=== PATIENT | male | born 1985 | race Caucasian/White ===

== ENCOUNTER 2018-09-20 17:52 | Emergency (ER) | payer OTHER, SELFPAY ==
[2018-09-20 18:01] VITALS: BP 173/100; PULSE 83; RESP 16; TEMP 37.7; O2SAT 99
--- NOTE | 2018-09-20 20:00 | DI.RAD.S_ITS ---
PROCEDURE: XR CHEST 1V INDICATIONS: chest pain TECHNIQUE: One view of the chest was acquired. COMPARISON: None. FINDINGS: Surgical changes and devices: None. Lungs and pleura: Lungs are clear. No pleural effusions or pneumothorax. Mediastinum: Mediastinal contours appear normal. Heart size is normal. Bones and chest wall: No suspicious bony lesions. Overlying soft tissues appear unremarkable. IMPRESSION: No acute cardiopulmonary disease process. Dictated by: Carolina Navarro MD, PhD on 09/20/2018 at 20:14 Approved by: Carolina Navarro MD, PhD on 09/20/2018 at 20:14
[2018-09-20 20:20] VITALS: BP 148/76; PULSE 68; RESP 15; O2SAT 95
[2018-09-20 20:24] LABS: Add Manual Diff / Slide Review NO; Basophils Absolute Auto 100 /uL (0-100); Basophils Percent Auto 1.2 % (0-2); Eosinophils Absolute Auto 100 /uL (0-450); Eosinophils Percent Auto 0.9 % (2-4); Hematocrit 46.7 % (41-53); Hemoglobin 15.7 g/dL (13.5-17.5); Lymphocytes Absolute Auto 3200 /uL (1100-4500); Mean Corpuscular HGB Conc 33.7 % (30-36); Mean Corpuscular Hemoglobin 27.2 PG (26-34); Mean Corpuscular Volume 80.7 fL (80-100); Monocytes Absolute Auto 1200 /uL (0-900); Monocytes Percent Auto 9.6 % (3-14); Neutrophils Absolute Auto 7400 /uL (1500-7000); Neutrophils Percent Auto 61.3 % (50-75); Platelet Count 337 X10^3/uL (150-400); Red Blood Cell Count 5.78 X10^6/uL (4.5-5.9); Red Cell Distribution Width 12.6 % (11.6-14.8)
--- NOTE | 2018-09-20 20:28 | ED.CHESTPAIN ---
HPI - Chest Pain <CODIE Robins - Last Filed: 09/20/18 22:09> General Chief Complaint: Chest Pain Stated Complaint: Chest pain loopy headache Time Seen by Provider: 09/20/18 20:08 Source: patient Mode of arrival: ambulatory Limitations: no limitations History of Present Illness HPI narrative: 33-year-old male with history of hypertension and is a nonsmoker here for complaint of having dizziness, feeling off, anxiety and occasional chest pain on and off over the past several days. He states that he has had new medications prescribed for seasonal allergies that he is taking along with a new blood pressure medicine he is concerned that these medications may be causing his symptoms. He states that he has been anxious that these medications may be causing his symptoms. He states that his anxious since has caused him to lose some sleep over the past couple of nights. He denies any chest pain at this time frame. He denies any stressors or relievers of his symptoms. He denies any instigating is of having chest pain. He denies having any fevers. He denies having any shortness of breath. He is ambulatory into the emergency room. No nausea or vomiting. Related Data Allergies Allergy/AdvReac Type Severity Reaction Status Date / Time No Known Drug Allergies Allergy Verified 09/20/18 18:07 Review of Systems <CODIE Robins - Last Filed: 09/20/18 22:09> Constitutional Denies chills, Denies fever(s), Denies lethargy and Denies weakness ENT Ears, Nose, Mouth, and Throat: Reports dizziness Cardiovascular Reports chest pain, Denies dyspnea and Denies dyspnea on exertion Respiratory Denies cough, Denies dyspnea, Denies dyspnea on exertion and Denies wheezing Gastrointestinal Gastrointestinal: Denies abdominal pain, Denies change in bowel habits, Denies diarrhea, Denies nausea and Denies vomiting Genitourinary Denies hematuria, Denies flank pain, Denies urinary incontinence and Denies urinary urgency Musculoskeletal Denies back pain, Denies muscle weakness, Denies numbness and Denies tingling Integumentary/Breasts Denies pruritus, Denies erythema, Denies rash and Denies wounds Neurologic Denies confusion, Reports dizziness, Denies numbness, Denies tingling and Denies weakness Psychiatric Denies anxiety, Denies confusion, Denies depression, Denies homicidal ideation and Denies suicidal ideation Allergic/Immunologic Denies wheezing PFSH <CODIE Robins - Last Filed: 09/20/18 22:09> Social History Smoking Status: Never smoker Social History Smoking Status: Never smoker Exam <CODIE Robins - Last Filed: 09/20/18 22:09> Initial Vital Signs Initial Vital Signs: Vital Signs Temperature 99.9 F H 09/20/18 18:01 Pulse Rate 83 09/20/18 18:01 Respiratory Rate 16 09/20/18 18:01 Blood Pressure 173/100 H 09/20/18 18:01 Pulse Oximetry 99 09/20/18 18:01 Const General: cooperative and well developed Nutritional Appearance: well nourished Orientation: alert, awake, oriented x3 and not confused HENMT Ears: external ears normal and TM's normal bilaterally Mouth: oral mucosae normal and moist mucous membranes Throat: posterior oropharynx normal Eyes General: appearance normal, both eyes and all related structures Conjunctivae: conjunctivae normal Sclera: sclerae normal Pupils: PERRL EOM: EOM intact bilaterally Resp Effort & Inspection: normal respiratory effort, able to speak in complete sentences, no respiratory distress and no use of accessory muscles Auscultation: clear to auscultation bilaterally, no rales, no rhonchi and no wheezes Cardio Rate: regular rate Rhythm: regular rhythm Heart Sounds: no click, no gallops, no murmurs and no rubs Pulses: normal peripheral pulses GI Inspection: non-distended Palpation: soft, no hepatosplenomegaly, No guarding, No pulsatile mass and No tender Auscultation: normal bowel sounds Skin General: no rashes or lesions noted, No jaundice and No petechiae Neuro General: alert, oriented x3, gait normal and no focal motor deficits Speech: speech normal <Navi Conde DO - Last Filed: 09/21/18 02:53> Initial Vital Signs Initial Vital Signs: Vital Signs Temperature 99.9 F H 09/20/18 18:01 Pulse Rate 83 09/20/18 18:01 Respiratory Rate 16 09/20/18 18:01 Blood Pressure 173/100 H 09/20/18 18:01 Pulse Oximetry 99 09/20/18 18:01 Course <CODIE Robins - Last Filed: 09/20/18 22:09> Orders Ordered: ED Orders 09/20/18 18:10 EKG-12 Lead Routine 09/20/18 20:00 XR chest 1V Stat 09/20/18 20:20 Complete Blood Count AUTO DIFF Stat Comprehensive Metabolic Panel Stat Lipase Stat Troponin & CK Cardiac Panel Stat 09/20/18 20:41 CT head/brain wo con Stat Vital Signs - 8 hr 09/20/18 20:20 09/20/18 20:30 09/20/18 21:00 Pulse Rate 68 83 70 Respiratory Rate 15 18 18 Blood Pressure Blood Pressure [Right Arm] 148/76 H 156/83 H 126/64 Pulse Oximetry 95 96 94 09/20/18 22:00 09/20/18 22:29 Pulse Rate 65 64 Respiratory Rate 20 18 Blood Pressure 128/58 L Blood Pressure [Right Arm] 128/58 L Pulse Oximetry 96 96 <Navi Conde DO - Last Filed: 09/21/18 02:53> Orders Ordered: ED Orders 09/20/18 18:10 EKG-12 Lead Routine 09/20/18 20:00 XR chest 1V Stat 09/20/18 20:20 Complete Blood Count AUTO DIFF Stat Comprehensive Metabolic Panel Stat Lipase Stat Troponin & CK Cardiac Panel Stat 09/20/18 20:41 CT head/brain wo con Stat Vital Signs - 8 hr 09/20/18 20:20 09/20/18 20:30 09/20/18 21:00 Pulse Rate 68 83 70 Respiratory Rate 15 18 18 Blood Pressure Blood Pressure [Right Arm] 148/76 H 156/83 H 126/64 Pulse Oximetry 95 96 94 09/20/18 22:00 09/20/18 22:29 Pulse Rate 65 64 Respiratory Rate 20 18 Blood Pressure 128/58 L Blood Pressure [Right Arm] 128/58 L Pulse Oximetry 96 96 MDM - Chest Pain <CODIE Robins - Last Filed: 09/20/18 22:09> Lab Data Result diagrams: 09/20/18 20:20 09/20/18 20:20 Lab Results 09/20/18 09/20/18 Range/Units 20:20 20:20 WBC 12.0 H (4.5-11.0) X10^3/uL RBC 5.78 (4.5-5.9) X10^6/uL Hgb 15.7 (13.5-17.5) g/dL Hct 46.7 (41-53) % MCV 80.7 (80-100) fL MCH 27.2 (26-34) PG MCHC 33.7 (30-36) % RDW 12.6 (11.6-14.8) % Plt Count 337 (150-400) X10^3/uL Neut % (Auto) 61.3 (50-75) % Lymph % (Auto) 27.0 (25-40) % Wells % (Auto) 9.6 (3-14) % Eos % (Auto) 0.9 L (2-4) % Baso % (Auto) 1.2 (0-2) % Neut # (Auto) 7400 H (7278-6275) /uL Lymph # (Auto) 3200 (0036-9575) /uL Wells # (Auto) 1200 H (0-900) /uL Eos # (Auto) 100 (0-450) /uL Baso # (Auto) 100 (0-100) /uL Sodium 140 (137-145) mmol/L Potassium 4.2 (3.4-5.1) mmol/L Chloride 102 (98-107) mmol/L Carbon Dioxide 29 (22-32) mmol/L BUN 14 (9-20) mg/dL Creatinine 0.90 (0.66-1.25) mg/dL Estimated GFR > 60.0 (>60) mL/min BUN/Creatinine Ratio 15.6 (6-22) Glucose 87 (70-100) mg/dL Calcium 9.5 (8.4-10.2) mg/dL Total Bilirubin 0.6 (0.2-1.3) mg/dL AST 45 (17-59) IU/L ALT 114 H (21-72) IU/L Alkaline Phosphatase 67 (38-126) U/L Total Creatine Kinase 298 H (55-170) U/L CK-MB (CK-2) 0.68 (<2.37) ng/mL CK-MB (CK-2) Rel Index 0.2 L (1.5-5.0) % Troponin I < 0.012 (0.01-0.034) ng/mL Total Protein 8.2 (6.3-8.2) g/dL Albumin 4.8 (3.5-5.0) g/dL Globulin 3.4 (1.7-4.1) g/dL Albumin/Globulin Ratio 1.4 (1.0-2.8) Lipase 82 (23-300) U/L Imaging Data CT scan - head: Radiologist's impression: [address] [address] [address] Scan Report Signed Patient: Jamie Han [facility]#: [id number] : 1985Acct:[id number] Age/Sex: 33 / MDate of Service: 09/20/18 Loc: ED Accession Number: [id number] Procedure: CT head/brain wo con Ordering Provider: Gabino Velasquez PROCEDURE: CT HEAD/BRAIN WO CON INDICATIONS: Headache dizziness feeling stoned TECHNIQUE: Noncontrast 4.5 mm thick angled axial sections acquired from the foramen magnum to the vertex, with coronal and sagittal reformats. For radiation dose reduction, the following was used: automated exposure control, adjustment of mA and/or kV according to patient size. COMPARISON: None. FINDINGS: Image quality: Excellent. CSF spaces: Basal cisterns are patent. No extra-axial fluid collections. Ventricles are normal in size and shape. Brain: No midline shift. No intracranial masses or hemorrhage. Wood-white matter interface is normal. Skull and face: Calvarium and visualized facial bones are intact, without suspicious lesions. Sinuses: Visualized sinuses and mastoids are clear. IMPRESSION: No acute intracranial disease process. Dictated by: Carolina Navarro MD, PhD on 09/20/2018 at 21:07 Approved by: Carolina Navarro MD, PhD on 09/20/2018 at 21:09 Chest x-ray: Radiologist's impression: [address] [address] XRay Report Signed Patient: Jamie Han [facility]#: [id number] : 1985Acct:[id number] Age/Sex: 33 / MDate of Service: 09/20/18 Loc: ED Accession Number: [id number] Procedure: XR chest 1V Ordering Provider: Navi Conde D.O. PROCEDURE: XR CHEST 1V INDICATIONS: chest pain TECHNIQUE: One view of the chest was acquired. COMPARISON: None. FINDINGS: Surgical changes and devices: None. Lungs and pleura: Lungs are clear. No pleural effusions or pneumothorax. Mediastinum: Mediastinal contours appear normal. Heart size is normal. Bones and chest wall: No suspicious bony lesions. Overlying soft tissues appear unremarkable. IMPRESSION: No acute cardiopulmonary disease process. Dictated by: Carolina Navarro MD, PhD on 09/20/2018 at 20:14 Approved by: Carolina Navarro MD, PhD on 09/20/2018 at 20:14 ECG Data Interpretation: EKG shows normal sinus rhythm with no ST elevation or depression. No ectopy. Ventricular rate of 72. Pr interval 194. QRS duration 121. QTC 387. MDM Narrative Medical decision making narrative: chest x-ray was obtained was negative for any acute findings. CT scan of the head was obtained and was also negative for any acute findings. EKG shows sinus rhythm with no ST elevation or depression. No ectopy cardiac enzymes were obtained and were negative. CBC and Chem panel were obtained and were also unremarkable. No emergent causes of his symptoms are found. Differential between viral illness or changes in his medications causing his symptoms including his blood pressure medication. Other differential is anxiety causing his symptoms. Patient's vital signs were stable in the emergency room will have him follow up with his primary care provider in the next few days for re-evaluation. For any worsening symptoms return to the emergency room. <Navi Conde DO - Last Filed: 09/21/18 02:53> Lab Data Lab Results 09/20/18 09/20/18 Range/Units 20:20 20:20 WBC 12.0 H (4.5-11.0) X10^3/uL RBC 5.78 (4.5-5.9) X10^6/uL Hgb 15.7 (13.5-17.5) g/dL Hct 46.7 (41-53) % MCV 80.7 (80-100) fL MCH 27.2 (26-34) PG MCHC 33.7 (30-36) % RDW 12.6 (11.6-14.8) % Plt Count 337 (150-400) X10^3/uL Neut % (Auto) 61.3 (50-75) % Lymph % (Auto) 27.0 (25-40) % Wells % (Auto) 9.6 (3-14) % Eos % (Auto) 0.9 L (2-4) % Baso % (Auto) 1.2 (0-2) % Neut # (Auto) 7400 H (3255-2330) /uL Lymph # (Auto) 3200 (3289-6600) /uL Wells # (Auto) 1200 H (0-900) /uL Eos # (Auto) 100 (0-450) /uL Baso # (Auto) 100 (0-100) /uL Sodium 140 (137-145) mmol/L Potassium 4.2 (3.4-5.1) mmol/L Chloride 102 (98-107) mmol/L Carbon Dioxide 29 (22-32) mmol/L BUN 14 (9-20) mg/dL Creatinine 0.90 (0.66-1.25) mg/dL Estimated GFR > 60.0 (>60) mL/min BUN/Creatinine Ratio 15.6 (6-22) Glucose 87 (70-100) mg/dL Calcium 9.5 (8.4-10.2) mg/dL Total Bilirubin 0.6 (0.2-1.3) mg/dL AST 45 (17-59) IU/L ALT 114 H (21-72) IU/L Alkaline Phosphatase 67 (38-126) U/L Total Creatine Kinase 298 H (55-170) U/L CK-MB (CK-2) 0.68 (<2.37) ng/mL CK-MB (CK-2) Rel Index 0.2 L (1.5-5.0) % Troponin I < 0.012 (0.01-0.034) ng/mL Total Protein 8.2 (6.3-8.2) g/dL Albumin 4.8 (3.5-5.0) g/dL Globulin 3.4 (1.7-4.1) g/dL Albumin/Globulin Ratio 1.4 (1.0-2.8) Lipase 82 (23-300) U/L Discharge Plan Departure Patient Disposition: Home Clinical Impression: Anxiousness Discharge Date/Time: 09/20/18 22:29 Interventions: ED Discharge Assessment Last Done: 09/20/18 22:29 Instructions: DI for Anxiety -- Adult Activity Restrictions/Additional Instructions: laboratory results and imaging today were unremarkable. Signs and symptoms present as symptoms secondary to medication changes or anxiety. follow-up with her primary care provider next few days for re-evaluation. For any worsening symptoms return to the emergency room. Try relaxation techniques to help out if feeling anxious. Such as deep breathing exercises. Referrals: [facility] [Provider Group] <Navi Conde DO - Last Filed: 09/21/18 02:53> Cosign ED Attending Patel Attestation: I was immediately available in the department for consultation. Documentation has been reviewed. I agree with assessment and plan.
[2018-09-20 20:30] VITALS: BP 156/83; PULSE 83; RESP 18; O2SAT 96
--- NOTE | 2018-09-20 20:41 | DI.CT.S_ITS ---
PROCEDURE: CT HEAD/BRAIN WO CON INDICATIONS: Headache dizziness feeling stoned TECHNIQUE: Noncontrast 4.5 mm thick angled axial sections acquired from the foramen magnum to the vertex, with coronal and sagittal reformats. For radiation dose reduction, the following was used: automated exposure control, adjustment of mA and/or kV according to patient size. COMPARISON: None. FINDINGS: Image quality: Excellent. CSF spaces: Basal cisterns are patent. No extra-axial fluid collections. Ventricles are normal in size and shape. Brain: No midline shift. No intracranial masses or hemorrhage. Wood-white matter interface is normal. Skull and face: Calvarium and visualized facial bones are intact, without suspicious lesions. Sinuses: Visualized sinuses and mastoids are clear. IMPRESSION: No acute intracranial disease process. Dictated by: Carolina Navarro MD, PhD on 09/20/2018 at 21:07 Approved by: Carolina Navarro MD, PhD on 09/20/2018 at 21:09
[2018-09-20 20:45] LABS: Alanine Aminotransferase 114 IU/L (21-72); Albumin 4.8 g/dL (3.5-5.0); Albumin Globulin Ratio 1.4 (1.0-2.8); Alkaline Phosphatase 67 U/L (38-126); Aspartate Aminotransferase 45 IU/L (17-59); BUN Creatinine Ratio 15.6 (6-22); Bilirubin Total 0.6 mg/dL (0.2-1.3); Blood Urea Nitrogen 14 mg/dL (9-20); Calcium 9.5 mg/dL (8.4-10.2); Carbon Dioxide 29 mmol/L (22-32); Chloride 102 mmol/L (98-107); Creatine Kinase 298 U/L (55-170); Estimated Glomerular Filt Rate > 60.0 mL/min (>60); Globulin 3.4 g/dL (1.7-4.1); Glucose 87 mg/dL (70-100); HEMOLYSIS < 15 (0-50); Lipase 82 U/L (23-300); Potassium 4.2 mmol/L (3.4-5.1); Sodium 140 mmol/L (137-145); Total Protein 8.2 g/dL (6.3-8.2)
[2018-09-20 20:56] LABS: Troponin I < 0.012 ng/mL (0.01-0.034)
[2018-09-20 21:00] VITALS: BP 126/64; PULSE 70; RESP 18; O2SAT 94
[2018-09-20 21:00] LABS: CKMB % Relative Index 0.2 % (1.5-5.0); Creatine Kinase MB 0.68 ng/mL (<2.37)
[2018-09-20 22:00] VITALS: BP 128/58; PULSE 65; RESP 20; O2SAT 96
--- NOTE | 2018-09-20 22:05 | ED_ITS ---
HPI - Chest Pain <CODIE Robins - Last Filed: 09/20/18 22:09> General Chief Complaint: Chest Pain Stated Complaint: Chest pain loopy headache Time Seen by Provider: 09/20/18 20:08 Source: patient Mode of arrival: ambulatory Limitations: no limitations History of Present Illness HPI narrative: 33-year-old male with history of hypertension and is a nonsmoker here for complaint of having dizziness, feeling off, anxiety and occasional chest pain on and off over the past several days. He states that he has had new medications prescribed for seasonal allergies that he is taking along with a new blood pressure medicine he is concerned that these medications may be causing his symptoms. He states that he has been anxious that these medications may be causing his symptoms. He states that his anxious since has caused him to lose some sleep over the past couple of nights. He denies any chest pain at this time frame. He denies any stressors or relievers of his symptoms. He denies any instigating is of having chest pain. He denies having any fevers. He denies having any shortness of breath. He is ambulatory into the emergency room. No nausea or vomiting. Related Data Allergies Allergy/AdvReac Type Severity Reaction Status Date / Time No Known Drug Allergies Allergy Verified 09/20/18 18:07 Review of Systems <CODIE Robins - Last Filed: 09/20/18 22:09> Constitutional Denies chills, Denies fever(s), Denies lethargy and Denies weakness ENT Ears, Nose, Mouth, and Throat: Reports dizziness Cardiovascular Reports chest pain, Denies dyspnea and Denies dyspnea on exertion Respiratory Denies cough, Denies dyspnea, Denies dyspnea on exertion and Denies wheezing Gastrointestinal Gastrointestinal: Denies abdominal pain, Denies change in bowel habits, Denies diarrhea, Denies nausea and Denies vomiting Genitourinary Denies hematuria, Denies flank pain, Denies urinary incontinence and Denies urinary urgency Musculoskeletal Denies back pain, Denies muscle weakness, Denies numbness and Denies tingling Integumentary/Breasts Denies pruritus, Denies erythema, Denies rash and Denies wounds Neurologic Denies confusion, Reports dizziness, Denies numbness, Denies tingling and Denies weakness Psychiatric Denies anxiety, Denies confusion, Denies depression, Denies homicidal ideation and Denies suicidal ideation Allergic/Immunologic Denies wheezing PFSH <CODIE Robins - Last Filed: 09/20/18 22:09> Social History Smoking Status: Never smoker Social History Smoking Status: Never smoker Exam <CODIE Robins - Last Filed: 09/20/18 22:09> Initial Vital Signs Initial Vital Signs: Vital Signs Temperature 99.9 F H 09/20/18 18:01 Pulse Rate 83 09/20/18 18:01 Respiratory Rate 16 09/20/18 18:01 Blood Pressure 173/100 H 09/20/18 18:01 Pulse Oximetry 99 09/20/18 18:01 Const General: cooperative and well developed Nutritional Appearance: well nourished Orientation: alert, awake, oriented x3 and not confused HENMT Ears: external ears normal and TM's normal bilaterally Mouth: oral mucosae normal and moist mucous membranes Throat: posterior oropharynx normal Eyes General: appearance normal, both eyes and all related structures Conjunctivae: conjunctivae normal Sclera: sclerae normal Pupils: PERRL EOM: EOM intact bilaterally Resp Effort & Inspection: normal respiratory effort, able to speak in complete sentences, no respiratory distress and no use of accessory muscles Auscultation: clear to auscultation bilaterally, no rales, no rhonchi and no wheezes Cardio Rate: regular rate Rhythm: regular rhythm Heart Sounds: no click, no gallops, no murmurs and no rubs Pulses: normal peripheral pulses GI Inspection: non-distended Palpation: soft, no hepatosplenomegaly, No guarding, No pulsatile mass and No tender Auscultation: normal bowel sounds Skin General: no rashes or lesions noted, No jaundice and No petechiae Neuro General: alert, oriented x3, gait normal and no focal motor deficits Speech: speech normal <Navi Conde DO - Last Filed: 09/21/18 02:53> Initial Vital Signs Initial Vital Signs: Vital Signs Temperature 99.9 F H 09/20/18 18:01 Pulse Rate 83 09/20/18 18:01 Respiratory Rate 16 09/20/18 18:01 Blood Pressure 173/100 H 09/20/18 18:01 Pulse Oximetry 99 09/20/18 18:01 Course <CODIE Robins - Last Filed: 09/20/18 22:09> Orders Ordered: ED Orders 09/20/18 18:10 EKG-12 Lead Routine 09/20/18 20:00 XR chest 1V Stat 09/20/18 20:20 Complete Blood Count AUTO DIFF Stat Comprehensive Metabolic Panel Stat Lipase Stat Troponin & CK Cardiac Panel Stat 09/20/18 20:41 CT head/brain wo con Stat Vital Signs - 8 hr 09/20/18 20:20 09/20/18 20:30 09/20/18 21:00 Pulse Rate 68 83 70 Respiratory Rate 15 18 18 Blood Pressure Blood Pressure [Right Arm] 148/76 H 156/83 H 126/64 Pulse Oximetry 95 96 94 09/20/18 22:00 09/20/18 22:29 Pulse Rate 65 64 Respiratory Rate 20 18 Blood Pressure 128/58 L Blood Pressure [Right Arm] 128/58 L Pulse Oximetry 96 96 <Navi Conde DO - Last Filed: 09/21/18 02:53> Orders Ordered: ED Orders 09/20/18 18:10 EKG-12 Lead Routine 09/20/18 20:00 XR chest 1V Stat 09/20/18 20:20 Complete Blood Count AUTO DIFF Stat Comprehensive Metabolic Panel Stat Lipase Stat Troponin & CK Cardiac Panel Stat 09/20/18 20:41 CT head/brain wo con Stat Vital Signs - 8 hr 09/20/18 20:20 09/20/18 20:30 09/20/18 21:00 Pulse Rate 68 83 70 Respiratory Rate 15 18 18 Blood Pressure Blood Pressure [Right Arm] 148/76 H 156/83 H 126/64 Pulse Oximetry 95 96 94 09/20/18 22:00 09/20/18 22:29 Pulse Rate 65 64 Respiratory Rate 20 18 Blood Pressure 128/58 L Blood Pressure [Right Arm] 128/58 L Pulse Oximetry 96 96 MDM - Chest Pain <CODIE Robins - Last Filed: 09/20/18 22:09> Lab Data Result diagrams: 09/20/18 20:20 09/20/18 20:20 Lab Results 09/20/18 09/20/18 Range/Units 20:20 20:20 WBC 12.0 H (4.5-11.0) X10^3/uL RBC 5.78 (4.5-5.9) X10^6/uL Hgb 15.7 (13.5-17.5) g/dL Hct 46.7 (41-53) % MCV 80.7 (80-100) fL MCH 27.2 (26-34) PG MCHC 33.7 (30-36) % RDW 12.6 (11.6-14.8) % Plt Count 337 (150-400) X10^3/uL Neut % (Auto) 61.3 (50-75) % Lymph % (Auto) 27.0 (25-40) % Vance % (Auto) 9.6 (3-14) % Eos % (Auto) 0.9 L (2-4) % Baso % (Auto) 1.2 (0-2) % Neut # (Auto) 7400 H (3911-0146) /uL Lymph # (Auto) 3200 (4547-9713) /uL Vance # (Auto) 1200 H (0-900) /uL Eos # (Auto) 100 (0-450) /uL Baso # (Auto) 100 (0-100) /uL Sodium 140 (137-145) mmol/L Potassium 4.2 (3.4-5.1) mmol/L Chloride 102 (98-107) mmol/L Carbon Dioxide 29 (22-32) mmol/L BUN 14 (9-20) mg/dL Creatinine 0.90 (0.66-1.25) mg/dL Estimated GFR > 60.0 (>60) mL/min BUN/Creatinine Ratio 15.6 (6-22) Glucose 87 (70-100) mg/dL Calcium 9.5 (8.4-10.2) mg/dL Total Bilirubin 0.6 (0.2-1.3) mg/dL AST 45 (17-59) IU/L ALT 114 H (21-72) IU/L Alkaline Phosphatase 67 (38-126) U/L Total Creatine Kinase 298 H (55-170) U/L CK-MB (CK-2) 0.68 (<2.37) ng/mL CK-MB (CK-2) Rel Index 0.2 L (1.5-5.0) % Troponin I < 0.012 (0.01-0.034) ng/mL Total Protein 8.2 (6.3-8.2) g/dL Albumin 4.8 (3.5-5.0) g/dL Globulin 3.4 (1.7-4.1) g/dL Albumin/Globulin Ratio 1.4 (1.0-2.8) Lipase 82 (23-300) U/L Imaging Data CT scan - head: Radiologist's impression: [address] [id number] [address] Scan Report Signed Patient: [facility]#: [id number] : 1985Acct:[id number] Age/Sex: 33 / MDate of Service: 09/20/18 Loc: ED Accession Number: [id number] Procedure: CT head/brain wo con Ordering Provider: Gabino Velasquez PROCEDURE: CT HEAD/BRAIN WO CON INDICATIONS: Headache dizziness feeling stoned TECHNIQUE: Noncontrast 4.5 mm thick angled axial sections acquired from the foramen magnum to the vertex, with coronal and sagittal reformats. For radiation dose reduction, the following was used: automated exposure control, adjustment of mA and/or kV according to patient size. COMPARISON: None. FINDINGS: Image quality: Excellent. CSF spaces: Basal cisterns are patent. No extra-axial fluid collections. Ventricles are normal in size and shape. Brain: No midline shift. No intracranial masses or hemorrhage. Wood-white ma tter interface is normal. Skull and face: Calvarium and visualized facial bones are intact, without suspicious lesions. Sinuses: Visualized sinuses and mastoids are clear. IMPRESSION: No acute intracranial disease process. Dictated by: Carolina Navarro MD, PhD on 09/20/2018 at 21:07 Approved by: Carolina Navarro MD, PhD on 09/20/2018 at 21:09 Chest x-ray: Radiologist's impression: [address] [id number] XRay Report Signed Patient: Jamie [facility]#: [id number] : 1985Acct:[id number] Age/Sex: 33 / MDate of Service: 09/20/18 Loc: ED Accession Number: [id number] Procedure: XR chest 1V Ordering Provider: Navi Conde D.O. PROCEDURE: XR CHEST 1V INDICATIONS: chest pain TECHNIQUE: One view of the chest was acquired. COMPARISON: None. FINDINGS: Surgical changes and devices: None. Lungs and pleura: Lungs are clear. No pleural effusions or pneumothorax. Mediastinum: Mediastinal contours appear normal. Heart size is normal. Bones and chest wall: No suspicious bony lesions. Overlying soft tissues appear unremarkable. IMPRESSION: No acute cardiopulmonary disease process. Dictated by: Carolina Navarro MD, PhD on 09/20/2018 at 20:14 Approved by: Carolina Navarro MD, PhD on 09/20/2018 at 20:14 ECG Data Interpretation: EKG shows normal sinus rhythm with no ST elevation or d epression. No ectopy. Ventricular rate of 72. Pr interval 194. QRS duration 121. QTC 387. MDM Narrative Medical decision making narrative: chest x-ray was obtained was negative for any acute findings. CT scan of the head was obtained and was also negative for any acute findings. EKG shows sinus rhythm with no ST elevation or depression. No ectopy cardiac enzymes were obtained and were negative. CBC and Chem panel were obtained and were also unremarkable. No emergent causes of his symptoms are found. Differential between viral illness or changes in his medications causing his symptoms including his blood pressure medication. Other differential is anxiety causing his symptoms. Patient's vital signs were stable in the emergency room will have him follow up with his primary care provider in the next few days for re-evaluation. For any worsening symptoms return to the emergency room. <Navi Conde DO - Last Filed: 09/21/18 02:53> Lab Data Lab Results 09/20/18 09/20/18 Range/Units 20:20 20:20 WBC 12.0 H (4.5-11.0) X10^3/uL RBC 5.78 (4.5-5.9) X10^6/uL Hgb 15.7 (13.5-17.5) g/dL Hct 46.7 (41-53) % MCV 80.7 (80-100) fL MCH 27.2 (26-34) PG MCHC 33.7 (30-36) % RDW 12.6 (11.6-14.8) % Plt Count 337 (150-400) X10^3/uL Neut % (Auto) 61.3 (50-75) % Lymph % (Auto) 27.0 (25-40) % Vance % (Auto) 9.6 (3-14) % Eos % (Auto) 0.9 L (2-4) % Baso % (Auto) 1.2 (0-2) % Neut # (Auto) 7400 H (1453-0529) /uL Lymph # (Auto) 3200 (7597-8907) /uL Vance # (Auto) 1200 H (0-900) /uL Eos # (Auto) 100 (0-450) /uL Baso # (Auto) 100 (0-100) /uL Sodium 140 (137-145) mmol/L Potassium 4.2 (3.4-5.1) mmol/L Chloride 102 (98-107) mmol/L Carbon Dioxide 29 (22-32) mmol/L BUN 14 (9-20) mg/dL Creatinine 0.90 (0.66-1.25) mg/dL Estimated GFR > 60.0 (>60) mL/min BUN/Creatinine Ratio 15.6 (6-22) Glucose 87 (70-100) mg/dL Calcium 9.5 (8.4-10.2) mg/dL Total Bilirubin 0.6 (0.2-1.3) mg/dL AST 45 (17-59) IU/L ALT 114 H (21-72) IU/L Alkaline Phosphatase 67 (38-126) U/L Total Creatine Kinase 298 H (55-170) U/L CK-MB (CK-2) 0.68 (<2.37) ng/mL CK-MB (CK-2) Rel Index 0.2 L (1.5-5.0) % Troponin I < 0.012 (0.01-0.034) ng/mL Total Protein 8.2 (6.3-8.2) g/dL Albumin 4.8 (3.5-5.0) g/dL Globulin 3.4 (1.7-4.1) g/dL Albumin/Globulin Ratio 1.4 (1.0-2.8) Lipase 82 (23-300) U/L Discharge Plan Departure Patient Disposition: Home Clinical Impression: Anxiousness Discharge Date/Time: 09/20/18 22:29 Interventions: ED Discharge Assessment Last Done: 09/20/18 22:29 Instructions: DI for Anxiety -- Adult Activity Restrictions/Additional Instructions: laboratory results and imaging today were unremarkable. Signs and symptoms present as symptoms secondary to medication changes or anxiety. follow-up with her primary care provider next few days for re-evaluation. For any worsening symptoms return to the emergency room. Try relaxation techniques to help out if feeling anxious. Such as deep breathing exercises. Referrals: [facility] [Provider Group] <Navi Conde, - Last Filed: 09/21/18 02:53> [facility]: I was immediately available in the department for consultation. Documentation has been reviewed. I agree with assessment and plan.
[2018-09-20 22:29] VITALS: BP 128/58; PULSE 64; RESP 18; O2SAT 96
== END 2018-09-20 22:29 | disposition home or self-care (01) ==
PROVIDERS: Emergency Medicine; Emergency Provider Nurse Practitioner Family
DX: F41.9 Anxiety disorder, unspecified (principal); R51 Headache; R42 Dizziness and giddiness; R07.9 Chest pain, unspecified
CPT/HCPCS: 36415; 70450; 71045; 80053; 82550; 82553; 83690; 84484; 85025; 93005; 99283; 99285

== ENCOUNTER → 2024-01-26 07:55 | Outpatient (CLI) | payer OTHER, SELFPAY ==
--- NOTE | 2024-01-26 | DI.NM.S_ITS ---
PROCEDURE: NM HIDA WITH CCK PHARMACEUTICAL: 5.5 mCi Tc-99m mebrofenin IV; 2.8 mcg CCK IV. INDICATIONS: Right upper quadrant pain TECHNIQUE: Following intravenous administration of Tc-99m mebrofenin, sequential anterior abdominal images were obtained. To evaluate the contractile response of the gallbladder in response to Cholecystokinin (CCK), sincalide (0.02 ?g/kg) was administered by slow intravenous infusion approximately 60 minutes after the administration of the radiopharmaceutical. Sequential imaging was continued for 30 minutes after the start of CCK infusion. Gallbladder ejection fraction was calculated. COMPARISON: None. FINDINGS: Biliary scan: There is normal tracer uptake and excretion by the liver. There is normal visualization of the intrahepatic ducts, common bile duct, and gallbladder. There is normal tracer transit into the duodenum. CCK stimulation: There is prompt, normal contractile response of the gallbladder to CCK infusion. The calculated gallbladder ejection fraction is 83% ; normal values are above 35%. It has been shown that any patient abdominal pain after CCK administration is related to the rate of CCK injection, rather than to any underlying gallbladder disease (Clinical Nuclear Medicine 2012; 37: 63-70. Journal of Nuclear Medicine 2014; 55: 1-9). IMPRESSION: Normal gallbladder ejection fraction. Dictated by: Dave Jane M.D. on 01/26/2024 at 13:00 Approved by: Dave Jane M.D. on 01/26/2024 at 13:01
== END ==
PROVIDERS: PCP Nurse Practitioner; Referring Provider Nurse Practitioner; Visit Provider Nurse Practitioner
DX: R10.11 Right upper quadrant pain (principal)
CPT/HCPCS: 78227; A9537; J2805